=== PATIENT | male | born 1975 | race Caucasian/White ===

== ENCOUNTER → 2024-04-12 09:14 | Outpatient (BNVA) | payer BC, SELFPAY | PROVIDERS: PCP Family Medicine; Visit Provider Family Medicine | DX: R00.1 Bradycardia, unspecified (principal); K29.70 Gastritis, unspecified, without bleeding; R53.83 Other fatigue; E11.9 Type 2 diabetes mellitus without complications | CPT/HCPCS: 80053; 80061; 84153; 84403; 84443; 85025 ==